=== PATIENT | female | born 1990 | race Two or more races ===

== ENCOUNTER 2016-10-06 16:21 | Emergency (ER) | payer OTHER ==
[~2016-10-06] VITALS: Ht 162.6 cm; Wt 59.0 kg
[2016-10-06] MEDS ORDERED: LORazepam 0.5mg tab ORAL ONE (16:30)
[2016-10-06 17:12] VITALS: BP 146/94
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
[2016-10-06] MEDS ORDERED: ATIVAN0.5 MG ORAL (17:37)
[2016-10-06 17:48] VITALS: BP 146/94
== END 2016-10-06 17:49 | disposition home or self-care (01) ==
LOC: EDBD 16:21 → EMR 16:42
DX: F45.8 Other somatoform disorders (principal); F41.9 Anxiety disorder, unspecified; J45.909 Unspecified asthma, uncomplicated
CPT/HCPCS: 99283